=== PATIENT | male | born 1975 | race Two or more races ===

== ENCOUNTER 2021-11-10 09:22 | Emergency (ER) | payer MEDICAID, SELFPAY ==
--- NOTE | ~2021-11-10 | XR_ITS ---
EXAMINATION: XR CHEST CLINICAL INFORMATION: Chest pain COMPARISON: 04/16/2019 TECHNIQUE: Frontal view of the chest was obtained. FINDINGS: The lungs are well expanded. There is blunting at the right costophrenic angle with thickening along the right lower pleural aspect. This suggests a small pleural effusion. Hazy opacity at the right base. No pneumothorax. The cardiomediastinal silhouette is within normal limits. No acute osseous abnormality. XR/XR chest 1V IMPRESSION: Opacity at the right base likely represents a combination of small pleural effusion and atelectasis or pneumonia.
--- NOTE | ~2021-11-10 | XR_ITS ---
EXAMINATION: XR SHOULDER, LEFT CLINICAL INFORMATION: Left shoulder pain COMPARISON: None TECHNIQUE: Three views of the left shoulder. FINDINGS: No fracture or dislocation. The glenohumeral joint is well aligned. The joint space is maintained. The acromioclavicular joint is intact. The visualized lung is clear. The visualized ribs are intact. XR/XR shoulder LT min 2V IMPRESSION: Normal left shoulder.
[2021-11-10 09:30] VITALS: PULSE 102; RESP 22; TEMP 37.3; O2SAT 99; BMI 21.8
[2021-11-10 09:31] VITALS: BP 137/80; PULSE 110; O2SAT 100
--- NOTE | 2021-11-10 11:16 | ECG_ITS ---
Test Reason : WEAKNESS Blood Pressure : / mmHG Vent. Rate : 097 BPM Atrial Rate : 097 BPM P-R Int : 146 ms QRS Dur : 080 ms QT Int : 368 ms P-R-T Axes : 071 058 038 degrees QTc Int : 467 ms Normal sinus rhythm Normal ECG When compared to the previous EKG of No significant changes seen Referred By: Beti Zepeda Electronically Signed By:Pradeep Montaño
--- NOTE | 2021-11-10 13:11 | ED_ITS ---
HPI - Extremity Problem General Chief complaint: Extremity Injury, Upper Stated complaint: L ARM PAIN/BRUISING,NO INJURY PER EMS Time Seen by Provider: 11/10/21 10:53 Source: patient and EMS Mode of arrival: EMS History of Present Illness HPI Narrative: 46-year-old male with a past medical history of substance abuse presenting to the ED complaining of left shoulder pain radiating to left neck, left chest wall and down LUE since yesterday s/p washing windows. Denies direct injury/ trauma or fall. Admits to associated nausea and vomiting. admits to using cocaine yesterday, denies using today, did take his dose of methadone this morning. Denies SOB, abdominal pain, pedal edema, recent travel, weakness MD Complaint: extremity pain Onset (ago): day(s) Pain Consistency: constant Related Data Previous Rx's Medication Instructions Recorded azithromycin 250 mg tablet See Rx Instructions .ROUTE 11/10/21 .COMPLEX #6 tab cefpodoxime 200 mg tablet 200 mg PO BID 7 Days #14 tab 11/10/21 lidocaine 5 % topical patch 1 patch TOPICAL DAILY PRN #30 ea 11/10/21 (Lidoderm) MDD remove after 12 hours naproxen 500 mg tablet 500 mg PO BID PRN 7 Days #14 tab 11/10/21 Allergies Allergy/AdvReac Type Severity Reaction Status Date / Time No Known Allergies Allergy Unverified 03/06/20 17:45 Review of Systems Review of Systems: Constitutional: No Fever, No Chills, No Fatigue, No Malaise ENT/Mouth: No Hearing loss, No Ear Pain, No Nasal Congestion, No sore throat, No Rhinorrhea, No Swallowing Difficulty Eyes: No Eye Pain, No Swelling, No Redness Cardiovascular: + Chest Pain, No SOB, No Dyspnea on Exertion, No Orthopnea, No Edema, No Palpitations Respiratory: No Cough, No Sputum, No Dyspnea Gastrointestinal: + Nausea, + Vomiting, No Diarrhea, No Constipation, No Ab dominal pain Genitourinary: No Dysuria, No Urinary Frequency, No Hematuria, No Urinary Incontinence/retention, No Flank Pain Musculoskeletal: + joint pain, No Myalgias, No Joint Swelling Skin: No Skin Lesions, No rash Neuro: No Weakness, No Numbness, No Paresthesias, No Dizziness, No Headache Yes all other systems are reviewed and are negative [facility], [facility] Past Medical History Attestation statement: The following information was validated with the patient. Social History Social History Advance Directives: No Advance Directives Information Provided: No Physical Exam Vital Signs: Vital Signs: Last Vital Signs Temp 98.4 F 11/10/21 16:32 Pulse 96 11/10/21 16:32 Resp 16 11/10/21 16:32 BP 135/83 11/10/21 16:32 Pulse Ox 98 11/10/21 16:32 BMI result Body Mass Index 21.8 Const: General: cooperative Orientation/consciousness: patient oriented x3 Limitations: no limitations HEENT: Head: Yes normal to inspection and Yes atraumatic Ears: hearing grossly normal bilaterally General nose exam: Normal external nose present Face and sinus: Yes normal facial exam Eyes: General: appearance normal, both eyes and all related structures EOM: EOMs intact bilaterally Neck: Other: no midline cervical spinous tenderness/ step-off or deformity. Left-sided paraspinal and trapezius muscle tenderness to palpation Neck: Yes normal visual inspection and Yes no meningeal signs Resp: Effort & Inspection: normal respiratory effort and no respiratory distress Auscultation: clear to auscultation bilaterally and no wheezes Cardio: Rate: regular rate Heart sounds: S1 normal heart sound present and S2 normal heart sound present Peripheral pulses: radial pulses present GI: Inspection: Yes normal to inspection Palpation (GI): Soft to palpation, nontender, no guarding and not rigid : General: Yes no CVA tenderness Back/Spine/Pelvis: Back: no CVA tenderness Skin: Rashes: no rashes Wounds: no wounds Neuro: General: patient oriented x3, tone normal and no meningeal signs Gait exam (Neuro): Normal gait present Extrem: Other: left shoulder without noted deformity. Diffusely tender to palpation greater over deltoid. No fluctuance/induration/ erythema or ecchymosis. Decreased ROM secondary to pain. Neurovascular intact distally. Sensation intact to light touch. General: Yes normal to inspection Course Course Course Narrative: XR chest 1V IMPRESSION: Opacity at the right base likely represents a combination of small pleural effusion and atelectasis or pneumonia. XR shoulder LT min 2V IMPRESSION: Normal left shoulder. -1311-- Lactic/ blood cultures added as well as IV Ceftriaxone and Azithromycin. still low suspicion for severe sepsis, tachycardia/ tachypnea likely from pacing around room/suspected substance abuse. -1426-- leukocytosis of 13.1 however appears chronic/ improved from priors. H&H at patient's baseline. BUN chronically elevated. Lactic acid negative. Troponin negative - tox screen positive for opiates, fentanyl, cocaine -1542-- on re-evaluation patient is sleeping comfortably in stretcher. results discussed with patient and family at bedside with film inspector including worrisome signs and symptoms and strict return precautions. Plan to DC home MDM - Extremity (Nontraumatic) MDM Narrative Medical decision making narrative: 46-year-old male with a past medical history of substance abuse presenting to the ED complaining of left shoulder pain radiating to left neck, left chest wall and down LUE since yesterday s/p washing windows. On exam tachycardic likely from pacing around room/fever, tachypneic, low-grade temp 99.1 degrees, lungs CTA, physical exam as above. Concern for atypical ACS vs cocaine chest pain vs MSK pain/ strain/muscle spasming vs viral syndrome. Lower concern for fracture. Unlikely PE. concern for substance use plan: EKG, labs, CXR confirmed 19/influenza testing, pain management Medical Records Attestation: I reviewed the patient's medical records. Lab Data Attestation: I reviewed the patient's lab results. Result diagrams: 11/10/21 13:07 11/10/21 13:07 Labs: Lab Results 11/10/21 11/10/21 11/10/21 Range/Units 13:07 13:07 13:08 WBC 13.1 H (4.8-10.8) X10*3/uL RBC 3.83 L (4.60-5.80) X10*6/uL Hgb 10.9 L (14.0-18.0) g/dl Hct 33.8 L (42.0-52.0) % MCV 88.3 (80.0-98.0) fL MCH 28.5 (27.0-33.0) pg MCHC 32.2 (31.0-36.0) g/dl RDW 14.6 (11.0-16.0) % Plt Count 239 (160-400) X10*3/uL MPV 10.0 (9.4-12.4) fL Immature Gran % (Auto) 1.0 H (0.0-0.4) % Neut % (Auto) 81.9 H (45-73) % Lymph % (Auto) 5.8 L (20-40) % Walsh % (Auto) 11.0 (2-11) % Eos % (Auto) 0.0 (0-4) % Baso % (Auto) 0.3 (0-2) % Lymph # (Auto) 0.8 L (1.2-4.9) X10*3/uL Walsh # (Auto) 1.5 H (0.1-1.2) X10*3/uL Eos # (Auto) 0.0 (0.0-0.4) X10*3/uL Baso # (Auto) 0.0 (0.0-0.2) X10*3/uL Abs Immat Gran (auto) 0.13 H (0.00-0.03) X10*3/uL Absolute Neuts (auto) 10.8 H (2.0-8.3) x10*3/uL Absolute Nucleated RBC 0.000 (0.0-0.012) X10*3/uL Nucleated RBC % (auto) 0.0 (0.0-0.2) /100WBC Sodium 135 (135-145) mmol/L Potassium 4.0 (3.3-5.1) mmol/L Chloride 100 (96-108) mmol/L Carbon Dioxide 25 (22-29) mmol/L Anion Gap 14 (12-20) BUN 25 H (9-16) mg/dL Creatinine 1.19 (0.5-1.4) mg/dL Estim Creat Clear Calc 67.8 Estimated GFR > 60 Random Glucose 100 (60-115) mg/dL Lactic Acid (0.5-2.0) mmol/L Calcium 8.7 (8.4-10.2) mg/dL Magnesium 2.3 (1.6-2.6) mg/dL Total Bilirubin 0.3 (0.0-1.0) mg/dL Direct Bilirubin 0.2 (0.0-0.5) mg/dL AST 16 (5-37) U/L ALT 16 (0-40) U/L Alkaline Phosphatase 113 (39-117) U/L Troponin I High Sens < 3.5 (<3.5-35.0) ng/L Total Protein 7.3 (6.5-8.0) g/dL Albumin 3.6 (3.5-5.0) g/dL Urine Color Urine Appearance Urine pH (5.0-8.0) Ur Specific [place] (1.005-1.025) Urine Protein (NEG-TRACE) MG/DL Urine Glucose (UA) (NEG) MG/DL Urine Ketones (NEG) MG/DL Urine Blood (NEG) Urine Nitrite (NEG) Ur Leukocyte Esterase (NEG) Urine RBC (0) /HPF Urine WBC (0-4) /HPF Ur Squamous Epith Cells /LPF Urine Bacteria /LPF WBC Casts /LPF Urine Mucus /LPF Urine Opiates Screen (Not Detect) Urine Fentanyl Screen (Not Detect) Ur Barbiturates Screen (Not Detect) Ur Phencyclidine Scrn (Not Detect) Ur Amphetamines Screen (Not Detect) U Benzodiazepines Scrn (Not Detect) Urine Cocaine Screen (Not Detect) U Marijuana (THC) Screen (Not Detect) COVID-19 (GINNY) (Negative) COVID-19 Clin Com Influenza Type A (ALINE) (Negative) Influenza Type B (ALINE) (Negative) Influenza A & B Note 11/10/21 11/10/21 11/10/21 Range/Units 13:22 14:30 16:27 WBC (4.8-10.8) X10*3/uL RBC (4.60-5.80) X10*6/uL Hgb (14.0-18.0) g/dl Hct (42.0-52.0) % MCV (80.0-98.0) fL MCH (27.0-33.0) pg MCHC (31.0-36.0) g/dl RDW (11.0-16.0) % Plt Count (160-400) X10*3/uL MPV (9.4-12.4) fL Immature Gran % (Auto) (0.0-0.4) % Neut % (Auto) (45-73) % Lymph % (Auto) (20-40) % Walsh % (Auto) (2-11) % Eos % (Auto) (0-4) % Baso % (Auto) (0-2) % Lymph # (Auto) (1.2-4.9) X10*3/uL Walsh # (Auto) (0.1-1.2) X10*3/uL Eos # (Auto) (0.0-0.4) X10*3/uL Baso # (Auto) (0.0-0.2) X10*3/uL Abs Immat Gran (auto) (0.00-0.03) X10*3/uL Absolute Neuts (auto) (2.0-8.3) x10*3/uL Absolute Nucleated RBC (0.0-0.012) X10*3/uL Nucleated RBC % (auto) (0.0-0.2) /100WBC Sodium (135-145) mmol/L Potassium (3.3-5.1) mmol/L Chloride (96-108) mmol/L Carbon Dioxide (22-29) mmol/L Anion Gap (12-20) BUN (9-16) mg/dL Creatinine (0.5-1.4) mg/dL Estim Creat Clear Calc Estimated GFR Random Glucose (60-115) mg/dL Lactic Acid 1.2 (0.5-2.0) mmol/L Calcium (8.4-10.2) mg/dL Magnesium (1.6-2.6) mg/dL Total Bilirubin (0.0-1.0) mg/dL Direct Bilirubin (0.0-0.5) mg/dL AST (5-37) U/L ALT (0-40) U/L Alkaline Phosphatase (39-117) U/L Troponin I High Sens (<3.5-35.0) ng/L Total Protein (6.5-8.0) g/dL Albumin (3.5-5.0) g/dL Urine Color Urine Appearance Urine pH (5.0-8.0) Ur Specific [place] (1.005-1.025) Urine Protein (NEG-TRACE) MG/DL Urine Glucose (UA) (NEG) MG/DL Urine Ketones (NEG) MG/DL Urine Blood (NEG) Urine Nitrite (NEG) Ur Leukocyte Esterase (NEG) Urine RBC (0) /HPF Urine WBC (0-4) /HPF Ur Squamous Epith Cells /LPF Urine Bacteria /LPF WBC Casts /LPF Urine Mucus /LPF Urine Opiates Screen POSITIVE H (Not Detect) Urine Fentanyl Screen POSITIVE H (Not Detect) Ur Barbiturates Screen Not Detected (Not Detect) Ur Phencyclidine Scrn Not Detected (Not Detect) Ur Amphetamines Screen Not Detected (Not Detect) U Benzodiazepines Scrn Not Detected (Not Detect) Urine Cocaine Screen POSITIVE H (Not Detect) U Marijuana (THC) Screen Not Detected (Not Detect) COVID-19 (GINNY) (Negative) COVID-19 Clin Com Influenza Type A (ALINE) Negative (Negative) Influenza Type B (ALINE) Negative (Negative) Influenza A & B Note See Note 11/10/21 11/10/21 Range/Units 16:27 16:33 WBC (4.8-10.8) X10*3/uL RBC (4.60-5.80) X10*6/uL Hgb (14.0-18.0) g/dl Hct (42.0-52.0) % MCV (80.0-98.0) fL MCH (27.0-33.0) pg MCHC (31.0-36.0) g/dl RDW (11.0-16.0) % Plt Count (160-400) X10*3/uL MPV (9.4-12.4) fL Immature Gran % (Auto) (0.0-0.4) % Neut % (Auto) (45-73) % Lymph % (Auto) (20-40) % Walsh % (Auto) (2-11) % Eos % (Auto) (0-4) % Baso % (Auto) (0-2) % Lymph # (Auto) (1.2-4.9) X10*3/uL Walsh # (Auto) (0.1-1.2) X10*3/uL Eos # (Auto) (0.0-0.4) X10*3/uL Baso # (Auto) (0.0-0.2) X10*3/uL Abs Immat Gran (auto) (0.00-0.03) X10*3/uL Absolute Neuts (auto) (2.0-8.3) x10*3/uL Absolute Nucleated RBC (0.0-0.012) X10*3/uL Nucleated RBC % (auto) (0.0-0.2) /100WBC Sodium (135-145) mmol/L Potassium (3.3-5.1) mmol/L Chloride (96-108) mmol/L Carbon Dioxide (22-29) mmol/L Anion Gap (12-20) BUN (9-16) mg/dL Creatinine (0.5-1.4) mg/dL Estim Creat Clear Calc Estimated GFR Random Glucose (60-115) mg/dL Lactic Acid (0.5-2.0) mmol/L Calcium (8.4-10.2) mg/dL Magnesium (1.6-2.6) mg/dL Total Bilirubin (0.0-1.0) mg/dL Direct Bilirubin (0.0-0.5) mg/dL AST (5-37) U/L ALT (0-40) U/L Alkaline Phosphatase (39-117) U/L Troponin I High Sens (<3.5-35.0) ng/L Total Protein (6.5-8.0) g/dL Albumin (3.5-5.0) g/dL Urine Color YELLOW Urine Appearance HAZY Urine pH 6.0 (5.0-8.0) Ur Specific [place] 1.025 (1.005-1.025) Urine Protein 1+ H (NEG-TRACE) MG/DL Urine Glucose (UA) NEG (NEG) MG/DL Urine Ketones 15 (NEG) MG/DL Urine Blood 1+ H (NEG) Urine Nitrite NEG (NEG) Ur Leukocyte Esterase NEG (NEG) Urine RBC 0-2 (0) /HPF Urine WBC 10-14 H (0-4) /HPF Ur Squamous Epith Cells TRACE /LPF Urine Bacteria TRACE /LPF WBC Casts 5-9 /LPF Urine Mucus TRACE /LPF Urine Opiates Screen (Not Detect) Urine Fentanyl Screen (Not Detect) Ur Barbiturates Screen (Not Detect) Ur Phencyclidine Scrn (Not Detect) Ur Amphetamines Screen (Not Detect) U Benzodiazepines Scrn (Not Detect) Urine Cocaine Screen (Not Detect) U Marijuana (THC) Screen (Not Detect) COVID-19 (GINNY) Negative (Negative) COVID-19 Clin Com See Note Influenza Type A (ALINE) (Negative) Influenza Type B (ALINE) (Negative) Influenza A & B Note ECG Data Attestation EKG: I personally reviewed and interpreted this ECG as follows: ECG interpretation date: 11/10/21 Interpretation: EKG normal sinus rhythm at a rate of 97. Pr interval 146. QTC 467. No STEMI Discharge Plan Discharge Clinical Impression: Acute shoulder pain, Pneumonia Patient Disposition: Home, Self-Care Instructions: Shoulder Pain (ED), Pneumonia (ED) Additional Instructions: your blood work was reassuring today in the emergency department. Your chest x -ray shows some fluid in her lung versus pneumonia, you were treated for pneumonia. You need to continue taking prescribed antibiotics, a Zithromax in and cefpodoxime. It is recommended you have a repeat chest x-ray in 7-10 days please follow-up with her doctor. You also need to follow-up with orthopedics for your shoulder pain. Naproxen as an anti-inflammatory/ pain medication, take with food. Lidoderm or numbing patches apply to painful area. If symptoms persist or worsen, pain becomes unbearable, have constant worsening cough/chest pain /shortness of breath or fever please return to the emergency department higginbotham an?lisis de aryan fue tranquilizador hoy en el departamento de emergencias. Higginboth[place] radiograf?a de t?rax muestra algo de l?quido en hig[place] pulm?n versus neumon?a, u sted recibi? tratamiento por neumon?a. Debe continuar tomando los antibi?ticos recetados, Zithromax y cefpodoxima. Se recomienda repetir la radiograf?a de t?rax en 7-10 d?as por favor, seguimiento con higginbotham m?dico. Tambi?n necesita seguimiento con ortopedia para higginbotham dolor de hombro. Naproxeno sophia medicamento antiinflamatorio/analg?sico, t?hadley con alimentos. Lidoderm o parches anest?sicos se aplican en el ?davina dolorida. Si los s?ntomas persisten o empeoran, el dolor se vuelve insoportable, tiene tos/dolor en el pecho/dificultad para respirar o fiebre que empeora constantemente, regrese al departamento de emergencias. Prescriptions: New cefpodoxime 200 mg tablet 200 mg PO BID 7 Days Qty: 14 0RF Rx Instructions: must administer with a meal/food azithromycin 250 mg tablet See Rx Instructions .ROUTE .COMPLEX Qty: 6 0RF Rx Instructions: take 500 mg today (day 1), then 250 mg for 4 days (days 2-5) lidocaine [Lidoderm] 5 % adhesive patch,medicated 1 patch topical DAILY MDD remove after 12 hours PRN (Reason: pain) Qty: 30 0RF Rx Instructions: leave on most painful area for up to 12 hrs naproxen 500 mg tablet 500 mg PO BID PRN (Reason: pain) 7 Days Qty: 14 0RF Referrals: Physician,Michelle J [Primary Care Provider] - Gabi De La Fuente PA-C [Physician Dry Chain Operator] - 1 week Print Language: Qatari
[2021-11-10 13:13] LABS: MANUAL DIFF FLAG NO
[2021-11-10 13:20] LABS: Basophils Percent Auto 0.3 % (0-2); Hematocrit 33.8 % (42.0-52.0); Hemoglobin 10.9 g/dl (14.0-18.0); Imm Gran Abs Auto 0.13 X10*3/uL (0.00-0.03); Lymphocytes Absolute Auto 0.8 X10*3/uL (1.2-4.9); Lymphocytes Percent Auto 5.8 % (20-40); Mean Corpuscular HGB Conc 32.2 g/dl (31.0-36.0); Mean Corpuscular Hemoglobin 28.5 pg (27.0-33.0); Mean Corpuscular Volume 88.3 fL (80.0-98.0); Monocytes Absolute Auto 1.5 X10*3/uL (0.1-1.2); Neutrophils Absolute Auto 10.8 x10*3/uL (2.0-8.3); Neutrophils Percent Auto 81.9 % (45-73); Platelet Count 239 X10*3/uL (160-400); Red Blood Count 3.83 X10*6/uL (4.60-5.80); Red Cell Distribution Width 14.6 % (11.0-16.0); White Blood Count 13.1 X10*3/uL (4.8-10.8)
[2021-11-10 13:34] LABS: Troponin-I High Sensitivity < 3.5 ng/L (<3.5-35.0)
[2021-11-10 13:40] LABS: Alanine Aminotransferase 16 U/L (0-40); Albumin Level 3.6 g/dL (3.5-5.0); Alkaline Phosphatase 113 U/L (39-117); Anion Gap 14 (12-20); Aspartate Amino Transferase 16 U/L (5-37); Bilirubin Direct 0.2 mg/dL (0.0-0.5); Bilirubin Total 0.3 mg/dL (0.0-1.0); Blood Urea Nitrogen 25 mg/dL (9-16); Calcium 8.7 mg/dL (8.4-10.2); Carbon Dioxide 25 mmol/L (22-29); Chloride 100 mmol/L (96-108); Creatinine Clr Calc Pharmacy 67.8; Estimated Glomerular Filt Rate > 60; Glucose Random 100 mg/dL (60-115); Magnesium 2.3 mg/dL (1.6-2.6); Sodium 135 mmol/L (135-145); Total Protein 7.3 g/dL (6.5-8.0)
[2021-11-10 13:42] LABS: Lactic Acid 1.2 mmol/L (0.5-2.0)
[2021-11-10 14:56] LABS: Amphetamine Screen Urine Not Detected (Not Detect); Barbiturates, Urine Not Detected (Not Detect); Benzodiazepines Screen Urine Not Detected (Not Detect); Cannabinoid Screen Urine Not Detected (Not Detect); Cocaine Screen Urine POSITIVE (Not Detect); Fentanyl, urine POSITIVE (Not Detect); Opiate Screen Urine POSITIVE (Not Detect); Phencyclidine Screen Urine Not Detected (Not Detect)
[2021-11-10] MEDS: 0.9 % Sodium Chloride 1,000 ML 999 ML IV ×2 (15:21→16:13)
[2021-11-10] MEDS: cefTRIAXone sodium 1 GM in 0.9 % Sodium Chloride 50 ML IV (15:21)
[2021-11-10] MEDS: Cyclobenzaprine HCl 5 MG TABLET PO (15:24)
[2021-11-10 15:49] VITALS: BP 121/73; PULSE 96; RESP 18; TEMP 37.3; O2SAT 97
[2021-11-10] MEDS: Azithromycin 500 MG in 0.9 % Sodium Chloride 250 ML 125 MG IV (16:22)
[2021-11-10 16:32] VITALS: BP 135/83; PULSE 96; RESP 16; TEMP 36.9; O2SAT 98
[2021-11-10 16:40] LABS: Appearance Urine HAZY; Color Urine YELLOW; Glucose Urine UA NEG (NEG); Leukocyte Esterase Urine NEG (NEG); Nitrite Urine NEG (NEG); Specific Gravity - Urine 1.025 (1.005-1.025); UACC Culture Trigger NO; Urine Blood 1+ (NEG); Urine Ketones 15 MG/DL (NEG); Urine Protein 1+ MG/DL (NEG-TRACE)
[2021-11-10 16:55] LABS: Bacteria Urine TRACE /LPF; Mucus Urine TRACE /LPF; RBC Urine 0-2 /HPF (0); Squamous Epithelial Cell Urine TRACE /LPF; UACC CULT YES
[2021-11-10 17:06] LABS: COVID-19 Test Negative (Negative); IDNOW Serial# 55D5AD1C; Influenza A Negative (Negative); Influenza B2 Negative (Negative)
[2021-11-10] MEDS: Metoclopramide HCl 10 MG/2 ML VIAL IVPUSH (17:11)
== END 2021-11-10 17:46 | disposition home or self-care (01) ==
PROVIDERS: Physician Assistant; Emergency Provider Emergency Medicine
DX: J15.211 Pneumonia due to Methicillin susceptible Staphylococcus aureus (principal); M25.512 Pain in left shoulder; Z79.899 Other long term (current) drug therapy; Z20.822 Contact with and (suspected) exposure to COVID-19
CPT/HCPCS: 36415; 71045; 73030; 80048; 80076; 80307; 81001; 83605; 83735; 84484; 85025; 87040; 87077; 87086; 87147; 87186; 87205; 87502; 87635; 93005; 96365; 96367; 96372; 96375; 99283; 99284; J0456; J0696; J2765

== ENCOUNTER 2021-11-16 17:45 | Inpatient (IN) | payer MEDICAID, SELFPAY ==
--- NOTE | ~2021-11-16 | CT_ITS ---
EXAMINATION: CT CHEST WITHOUT CONTRAST CLINICAL INFORMATION: Chest pain, IV drug abuse, question septic emboli COMPARISON: Chest x-ray 11/10/2021 TECHNIQUE: Multidetector volumetric CT imaging of the chest was done. Axial MIP volume rendering provided. Sagittal and coronal reformatted images were obtained. This CT examination was performed using dose optimization techniques as appropriate, variously including the following: *Automated exposure control *Adjustment of mA and/or kV according to patient size (this includes techniques or standardized protocols for targeted exams where dose is matched to indication/reason for exam; i.e. extremities or head) *Use of iterative reconstruction technique DLP: 205 mGy-cm FINDINGS: LUNGS/PLEURA: There is a nodular focus in the lateral left upper lobe measuring approximately 2.3 cm in diameter with central cavitation and surrounding groundglass opacity. A noncavitating 0.5 cm nodule with surrounding groundglass opacity is present in the left upper lobe laterally on image [id number]/486. A few additional scattered focal groundglass opacities are present in the posterior left upper lobe. There is a mixed density 0.5 cm posterior right upper lobe nodule on image 184/486. Focal nodular opacity is present in the right middle lobe laterally measuring approximately 2.6 cm, with minimal central cavitation. There is volume loss in the right middle lobe with subsegmental atelectasis. There is paraseptal emphysema at the lung apices. There is posterior curvilinear opacity in the basilar right lower lobe with suspected adjacent minimal pleural fluid. Associated pleural thickening is seen extending laterally and anteriorly. There is mild dependent opacity at the left base without significant pleural effusion. MEDIASTINUM: The visualized thyroid gland is unremarkable. There are mildly prominent mediastinal lymph nodes, suboptimally assessed without intravenous contrast. Cardiac size is within normal limits; no pericardial effusion. Coronary artery calcifications are present. AXILLA: No lymphadenopathy. UPPER ABDOMEN: Unremarkable. OSSEOUS STRUCTURES: Mild degenerative endplate changes are present in the spine. CT/CT chest wo con IMPRESSION: 1. Several bilateral nodular foci, largest in the left upper and right middle lobe as described above with central cavitary foci. Appearance is suspicious for septic emboli given the clinical history. Without prior studies for comparison, follow-up CT in 3 months is advised to assess for resolution of these findings and exclude underlying neoplasm. 2. Posterior curvilinear opacity in the basilar right lower lobe, favored to at least partially be due to atelectasis and/or scar. Minimal adjacent pleural fluid is suspected along with pleural thickening. Attention on follow-up is recommended. 3. Mildly prominent mediastinal lymph nodes, which may be reactive. 4. Paraseptal emphysema at the lung apices.
--- NOTE | ~2021-11-16 | XR_ITS ---
EXAMINATION: XR SHOULDER, LEFT CLINICAL INFORMATION: Shoulder pain. COMPARISON: 11/10/2021. TECHNIQUE: Four views of the left shoulder. FINDINGS: The bones and soft tissues are normal. No fracture. Glenohumeral and acromioclavicular alignment is anatomic with normal joint space. No abnormal soft tissue calcifications. XR/XR shoulder LT min 2V IMPRESSION: Normal left shoulder.
[2021-11-16 18:12] VITALS: BP 116/73; PULSE 102; RESP 16; TEMP 36; O2SAT 96; BMI 24.2
[2021-11-16 19:00] VITALS: BP 111/72; PULSE 99; RESP 18; TEMP 36.6; O2SAT 96
--- NOTE | 2021-11-16 19:08 | ECG_ITS ---
Test Reason : SKIN/ABSCESS Blood Pressure : / mmHG Vent. Rate : 078 BPM Atrial Rate : 078 BPM P-R Int : 154 ms QRS Dur : 074 ms QT Int : 404 ms P-R-T Axes : 049 052 035 degrees QTc Int : 460 ms Normal sinus rhythm Normal ECG When compared with ECG of 10-NOV-2021 12:53, No significant change was found Referred By: Dia Lopez Electronically Signed By:ROSA BROOKS MD
--- NOTE | 2021-11-16 19:22 | ED_ITS ---
HPI - Skin/Abscess/Foreign Bdy General Chief complaint: Skin/Abscess/Foreign Body Stated complaint: lump on shoulder Time Seen by Provider: 11/16/21 18:59 History of Present Illness HPI narrative: Patient is a 46-year-old male with a history of recreational drug use. Patient's shoots cocaine and heroin. Was seen in the emergency department 2 days prior for having shoulder pain possible pneumonia. Patient had some small amount of redness over the left shoulder. Had decreased range of motion. Labs were done normal white count cultures were done. Patient was called back to the emergency department today because the blood culture came back positive 2/2 for Gram-positive cocci in clusters. Patient denies any fever chills infected shoulder pain has subsided. Patient range of motion at the shoulder has much improved. He claims is back to normal. Patient denies any coughing congestion upper respiratory symptoms. He claims he is vaccinated for COVID. Patient complaining of a redness over the left shoulder. The same shoulder that he had pain in. He claims compliance with his antibiotics he was given cefpodoxime and also azithromycin for the pneumonia. He was given naproxen for pain Related Data Previous Rx's Medication Instructions Recorded azithromycin 250 mg tablet See Rx Instructions .ROUTE 11/10/21 .COMPLEX #6 tab cefpodoxime 200 mg tablet 200 mg PO BID 7 Days #14 tab 11/10/21 lidocaine 5 % topical patch 1 patch TOPICAL DAILY PRN #30 ea 11/10/21 (Lidoderm) MDD remove after 12 hours naproxen 500 mg tablet 500 mg PO BID PRN 7 Days #14 tab 11/10/21 Allergies Allergy/AdvReac Type Severity Reaction Status Date / Time No Known Allergies Allergy Unverified 03/06/20 17:45 Review of Systems Review of Systems: Positive pain to the left shoulder No fever no chills no coughing or congestion no upper respiratory symptoms No diaphoresis Yes all other systems are reviewed and are negative FOR[facility]LY [facility] Past Medical History Attestation statement: The following information was validated with the patient. Social History Social History Advance Directives: No Advance Directives Information Provided: No Physical Exam Vital Signs: Vital Signs: Last Vital Signs Temp 99.0 F 11/16/21 19:45 Pulse 85 11/16/21 19:45 Resp 16 11/16/21 19:45 BP 100/60 11/16/21 19:45 Pulse Ox 100 11/16/21 19:45 BMI result Body Mass Index 24.2 Appearance: Alert. Oriented X3. No acute distress. Eyes: Pupils equal, round and reactive to light. ENT: Pharynx normal. Neck: Normal inspection. Neck supple. No lymph nodes noted. No crepitus CVS: Normal heart rate and rhythm. Pulses normal. Normal S1 and S2 Respiratory: No respiratory distress. Breath sounds normal. No Wheezing. No rales Abdomen: Soft and nontender. No rigidity. No distention. good BS x4 Skin: Skin warm and dry. Normal skin color. Normal skin turgor. Extremities: No lower extremity edema. Neurovascular intact to all extremities. No Lacerations. Examination of the left shoulder this showed good range of motion. Abduction adduction internal external rotation for intact. Able to touch the opposite shoulder with his hands without any difficulties. Good pulses 2+ at radial sensation over the axillary median radial ulnar nerve intact. There is a distal small area of redness that is approximately 3 cm x 3 cm in size. Ultrasound was done on that lesion. There is no evidence for fluctuance at this time. Neuro: Oriented X 3. No motor deficit. No sensory deficit. Moving all extermities. No slurred speech MDM - Skin/Abscess/Foreign Bdy MDM Narrative Medical decision making narrative: Positive blood cultures x2 sets. History of IV drug use. Started on Ancef after discussion with Infectious Disease. Will admit patient for further workup in house. Currently in stable condition awaiting admissions. Medical Records Attestation: I reviewed the patient's medical records. Lab Data Attestation: I reviewed the patient's lab results. Discharge Plan Discharge Clinical Impression: Cellulitis, Blood bacterial culture positive Patient Disposition: Admitted As Inpatient Prescriptions: No Action cefpodoxime 200 mg tablet 200 mg PO BID 7 Days Qty: 14 0RF Rx Instructions: must administer with a meal/food azithromycin 250 mg tablet See Rx Instructions .ROUTE .COMPLEX Qty: 6 0RF Rx Instructions: take 500 mg today (day 1), then 250 mg for 4 days (days 2-5) lidocaine [Lidoderm] 5 % adhesive patch,medicated 1 patch topical DAILY MDD remove after 12 hours PRN (Reason: pain) Qty: 30 0RF Rx Instructions: leave on most painful area for up to 12 hrs naproxen 500 mg tablet 500 mg PO BID PRN (Reason: pain) 7 Days Qty: 14 0RF
[2021-11-16 19:45] VITALS: BP 100/60; PULSE 85; RESP 16; TEMP 37.2; O2SAT 100
[2021-11-16 20:38] LABS: Hemoglobin 9.2 g/dl (14.0-18.0); Mean Corpuscular HGB Conc 32.9 g/dl (31.0-36.0); Mean Corpuscular Hemoglobin 28.2 pg (27.0-33.0); Mean Corpuscular Volume 85.9 fL (80.0-98.0); Mean Platelet Volume 9.1 fL (9.4-12.4); Platelet Count 465 X10*3/uL (160-400); Red Blood Count 3.26 X10*6/uL (4.60-5.80); Red Cell Distribution Width 15.3 % (11.0-16.0); White Blood Count 17.2 X10*3/uL (4.8-10.8)
[2021-11-16 20:39] LABS: Lactic Acid 0.8 mmol/L (0.5-2.0)
[2021-11-16 20:41] LABS: Anion Gap 16 (12-20); Blood Urea Nitrogen 20 mg/dL (9-16); Calcium 8.6 mg/dL (8.4-10.2); Carbon Dioxide 26 mmol/L (22-29); Chloride 102 mmol/L (96-108); Creatinine Clr Calc Pharmacy 116.4; Estimated Glomerular Filt Rate > 60; Glucose Random 107 mg/dL (60-115); Potassium 4.5 mmol/L (3.3-5.1); Sodium 139 mmol/L (135-145)
--- NOTE | 2021-11-16 20:41 | P.HPHOSP_ITS ---
History of Present Illness Date of Service: 11/16/21 Chief Complaint: bacterimic This is a 46-year-old male who is [place]ian-speaking polysubstance abuser, asthma, depression anxiety, who presents to the hospital after blood cultures from recent admission showed MSSA Patient was seen in the hospital on 11/06 for evaluation of left shoulder pain radiating to the left neck, left chest wall and down left upper extremity. At that time patient was febrile, tachypneic, had low-grade temperature of 99.1 degrees. Workup in the ED which include chest x-ray showed right base pneumonia and small pleural effusion and patient was started on antibiotics azithromycin and cefpodoxime and sent home. Patient was called back by the ED to the hospital as his blood cultures were positive for Gram-positive cocci in clusters with Staph aureus identified. Patient currently is asymptomatic but reports bilateral chest wall pain worse with movement and taking deep breaths. Patient otherwise denies any palpitations, no shortness of breath, no cough, denies any fever but feels chills. No abdominal pain nausea or vomiting, no diarrhea constipation, no urinary symptoms. And no lower extremity edema. On arrival to the ED patient hemodynamically stable with no significant abnormal vitals Labs are significant for WBC count of 17.2, hemoglobin of 9.2, hematocrit of 28 , no other lab abnormality Infectious disease was consulted and recommend admission and starting IV antibiotics patient's history of polysubstance abuse Review of Systems Review of Systems: Yes all other systems are reviewed and are negative [facility] Medical History (Updated 11/17/21 @ 06:21 by Kitty Holloway MD) Anxiety and depression Asthma Polysubstance abuse Family History (Updated 11/17/21 @ 06:16 by Kitty Holloway MD) Mother Coronary artery disease Surgical History (Updated 11/17/21 @ 06:16 by Kitty Holloway MD) No pertinent past surgical history Social History (Updated 11/17/21 @ 06:17 by Kitty Holloway MD) Alcohol intake: current Patient Tobacco Use Status: Current everyday Tobacco user Cigarette Packs Per Day: 0.7 Use of substances other than those prescribed or required for medical reasons: Yes Substance Use Type: Crack/Cocaine and Heroin Advance Directives: No Advance Directives Information Provided: No Meds Allergies Allergy/AdvReac Type Severity Reaction Status Date / Time No Known Allergies Allergy Unverified 03/06/20 17:45 Active Medications: Current Medications Acetaminophen (Acetaminophen 325 Mg Tablet) 650 mg PO Q6H PRN PRN Reason: Pain, Mild (Pain Scale 1-3) Docusate Sodium (Docusate Sodium 100 Mg Capsule) 100 mg PO DAILY PRN PRN Reason: Constipation Enoxaparin Sodium (Enoxaparin Sodium 40 Mg/0.4 Ml Syringe) 40 mg SUBCUT Q24H [facility] Cefazolin Sodium 2 gm/ Sodium (Chloride) 50 mls @ 100 mls/hr IV Q8H [facility] Ondansetron HCl (Ondansetron Hcl 4 Mg/2 Ml Vial) 4 mg IVPUSH Q8H PRN PRN Reason: Nausea and Vomiting Pharmacy Consult (Consult Rx Perform Med Rec) 1 each MISCELLANE ONCE PRN PRN Reason: Consult order Sodium Chloride (0.9 % Sodium Chloride Flush 3 Ml Syringe) 3 ml IVFLUSH QSHIFT [facility] Home Medications Medication Instructions Recorded Confirmed Last Taken Type docusate sodium 100 mg capsule 1 - 2 cap PO BEDTIME PRN 11/16/21 11/16/21 11/15/21 History fluticasone 500 mcg-salmeterol 50 1 puff PO DAILY 11/16/21 11/16/21 Unknown History mcg/dose blistr powdr for inhalation (Advair Diskus) gabapentin 300 mg capsule 1 cap PO TID 11/16/21 11/16/21 11/15/21 History ipratropium 20 mcg-albuterol 100 1 puff INHALATION QID PRN 11/16/21 11/16/21 11/15/21 History mcg/actuation mist for inhalation (Combivent Respimat) loratadine 10 mg tablet 1 tab PO DAILY 11/16/21 11/16/21 11/15/21 History melatonin 5 mg tablet 2 tab PO BEDTIME PRN 11/16/21 11/16/21 11/15/21 History montelukast 10 mg tablet 1 tab PO QPM 11/16/21 11/16/21 11/15/21 History tiotropium bromide 18 mcg capsule 1 cap INHALATION DAILY 11/16/21 11/16/21 Unknown History with inhalation device (Spiriva with HandiHaler) Physical Exam Vital Signs and Narrative: Vital Signs: Last Vital Signs Temp 99.0 F 11/16/21 19:45 Pulse 85 11/16/21 19:45 Resp 16 11/16/21 19:45 BP 100/60 11/16/21 19:45 Pulse Ox 100 11/16/21 19:45 BMI result Body Mass Index 24.2 Const: General: cooperative and no acute distress Orienta tion/consciousness: patient oriented x3 Eyes: General: appearance normal, both eyes and all related structures Resp: Effort & Inspection: normal respiratory effort Auscultation: clear to auscultation bilaterally Cardio: Rate: regular rate Rhythm: regular rhythm GI: Palpation (GI): Soft to palpation Auscultation: normal bowel sounds Skin: General skin exam: no rashes or lesions noted Neuro: General: patient oriented x3 Cognition (Neuro): normal cognition Extrem: General: Yes normal to inspection and Yes no pedal edema Results Labs CBC and Chem 7: 11/17/21 04:54 11/17/21 04:54 Labs: Laboratory Results - last 24 hr 11/16/21 11/16/21 20:19 20:20 MCV 85.9 MCH 28.2 MCHC 32.9 RDW 15.3 Plt Count 465 H D MPV 9.1 L Immature Gran % (Auto) Cancelled Neut % (Auto) Cancelled Lymph % (Auto) Cancelled [place] % (Auto) Cancelled Eos % (Auto) Cancelled Baso % (Auto) Cancelled Lymph # (Auto) Cancelled [place] # (Auto) Cancelled Eos # (Auto) Cancelled Baso # (Auto) Cancelled Abs Immat Gran (auto) Cancelled Absolute Neuts (auto) Cancelled Absolute Nucleated RBC 0.000 Nucleated RBC % (auto) 0.0 Lactic Acid 0.8 Imaging Radiologist's Impressions: Impressions Shoulder X-Ray 11/16/21 19:39 IMPRESSION: Normal left shoulder. Assessment and Plan (1) Blood bacterial culture positive: Status: Acute (2) Polysubstance abuse: Status: Acute (3) MSSA bacteremia: Status: Acute (4) Pneumonia: Status: Acute (5) Atypical chest pain: Status: Acute Plan 46-year-old male with past medical history of polysubstance abuse including IV drug use presents to the hospital after positive blood cultures. # MSSA bacteremia - possibly secondary to IV drug use versus contaminant less likely - blood cultures positive 2/2 - will treat with Ancef per ID recommendation - repeat blood cultures - will order CT angiogram given recent x-ray - follow cultures # pneumonia? - patient denies any cough, no shortness of breath - chest x-ray done on 524 showed pleural effusion and atelectasis versus infection - at this time given his history of MSSA bacteremia, will obtain CT angiogram to rule out septic emboli as well as PE as patient is having atypical chest pain - follow CT result - antibiotics as above # atypical chest pain - possibly secondary to pneumonia versus septic emboli versus PE - will obtain CT angiogram - monitor respiratory status - at this time patient not hypoxic # phos substance use - on methadone - consult care team - resume methadone DVT prophylaxis: Lovenox Given patient's bacteremia and history of IV drug use, he requires a minimum 2 night hospital stay for IV antibiotics until further cultures Quality Stroke Does the patient have a stroke diagnosis?: No VTE Prior VTE?: No VTE Risk Level:: Medical - moderate - high VTE Device Contraindication: Treatment Not Indicated VTE Drug Contraindication: N/A - Med Ordered
[2021-11-16 20:44] LABS: COVID-19 Test Negative (Negative)
[2021-11-16 21:02] LABS: Band Neutrophils Percent 1 % (3-5); Eosinophils Absolute Manual 0.3 X10*3/uL (0.0-0.4); Eosinophils Percent Manual 2 % (0-4); Lymphocytes Absolute Manual 3.6 X10*3/uL (1.2-4.9); Lymphocytes Percent Manual 21 % (20-40); Metamyelocytes Absolute 0.2 X10*3/uL; Metamyelocytes Percent 1 %; Monocytes Absolute Manual 0.7 X10*3/uL (0.1-1.2); Monocytes Percent Manual 4 % (2-11); Myelocytes Absolute 0.3 X10*/uL; Myelocytes Percent 2 %; Neutrophils Percent Manual 69 % (45-73)
[2021-11-16 21:03] LABS: Microcytosis 1+ (5-14) /OIF; Platelet Estimate INCREASED (NORMAL); RBC Morphology NOTED
[2021-11-16 21:04] LABS: Large Platelet PRESENT; Platelet Morphology Comment NOTED
[2021-11-16 21:05] LABS: Hypochromasia 3+ (>30) /OIF
--- NOTE | 2021-11-16 21:05 | PHA.MEDREC ---
Pharmacy Consult ? Medication Reconciliation Pharmacy has completed the medication reconciliation.
[2021-11-16 21:06] LABS: Polychromasia 1+ (0-2) /OIF; Toxic Granulation PRESENT
[2021-11-16 21:07] LABS: Toxic Vacuolation PRESENT
[2021-11-16 21:18] VITALS: BP 115/71; PULSE 78; RESP 16; TEMP 36.6; O2SAT 897
[2021-11-16] MEDS: Enoxaparin Sodium 40 MG/0.4 ML SYRINGE SUBCUT (21:41)
[2021-11-16] MEDS: ceFAZolin Sodium/Dextrose,Iso 2 GM/50 ML PIGGYBACK IV (21:41)
[2021-11-16 23:58] VITALS: BP 106/73; PULSE 82; RESP 16; TEMP 36.5; O2SAT 97
[2021-11-17 04:59] LABS: Hemoglobin 9.4 g/dl (14.0-18.0); Mean Corpuscular HGB Conc 32.4 g/dl (31.0-36.0); Mean Corpuscular Hemoglobin 28.6 pg (27.0-33.0); Mean Corpuscular Volume 88.1 fL (80.0-98.0); Platelet Count 410 X10*3/uL (160-400); Red Blood Count 3.29 X10*6/uL (4.60-5.80); Red Cell Distribution Width 15.5 % (11.0-16.0); White Blood Count 14.1 X10*3/uL (4.8-10.8)
[2021-11-17 05:17] LABS: Band Neutrophils Percent 1 % (3-5); Lymphocytes Absolute Manual 3.5 X10*3/uL (1.2-4.9); Lymphocytes Percent Manual 25 % (20-40); Metamyelocytes Absolute 0.4 X10*3/uL; Metamyelocytes Percent 3 %; Monocytes Absolute Manual 1.3 X10*3/uL (0.1-1.2); Monocytes Percent Manual 9 % (2-11); Myelocytes Absolute 0.1 X10*/uL; Myelocytes Percent 1 %; Neutrophils Absolute Manual 8.7 X10*3/uL (2.0-8.3); Neutrophils Percent Manual 61 % (45-73); Platelet Estimate NORMAL (NORMAL); Platelet Morphology Comment NORMAL; RBC Morphology NORMAL
[2021-11-17 05:22] VITALS: BP 111/73; PULSE 74; RESP 16; TEMP 36.6; O2SAT 97
[2021-11-17 05:25] LABS: Anion Gap 13 (12-20); Blood Urea Nitrogen 19 mg/dL (9-16); Calcium 8.8 mg/dL (8.4-10.2); Carbon Dioxide 28 mmol/L (22-29); Chloride 101 mmol/L (96-108); Creatinine Clr Calc Pharmacy 125.4; Estimated Glomerular Filt Rate > 60; Glucose Random 90 mg/dL (60-115); Potassium 4.7 mmol/L (3.3-5.1); Sodium 137 mmol/L (135-145)
[2021-11-17] MEDS: ceFAZolin Sodium/Dextrose,Iso 2 GM/50 ML PIGGYBACK IV (06:04)
[2021-11-17 07:09] LABS: D Dimer High Sensitivity 1115 NG/ML
[2021-11-17] MEDS: 0.9 % Sodium Chloride Flush 3 ML SYRINGE IVFLUSH (07:09)
[2021-11-17 07:40] VITALS: BP 117/67; PULSE 74; RESP 17; TEMP 36.5; O2SAT 96
--- NOTE | 2021-11-17 08:39 | HO.PM.IMPN ---
Subjective Subjective Date of Service: 11/17/21 Interval History: Pneumonia, possible septic emboli Physical Exam Vital Signs: Vital Signs: Last Vital Signs Temp 97.7 F 11/17/21 07:40 Pulse 74 11/17/21 07:40 Resp 17 11/17/21 07:40 BP 117/67 11/17/21 07:40 Pulse Ox 96 11/17/21 07:40 BMI result Body Mass Index 24.2 Objective Data Active Medications Acetaminophen (Acetaminophen 325 Mg Tablet) 650 mg PO Q6H PRN PRN Reason: Pain, Mild (Pain Scale 1-3) Albuterol/Ipratropium (Albuterol/Iprat 2.5/0.5mg 3 Ml Ampul.Neb) 3 ml INHALE QID PRN PRN Reason: Wheezing Docusate Sodium (Docusate Sodium 100 Mg Capsule) 100 mg PO DAILY PRN PRN Reason: Constipation Enoxaparin Sodium (Enoxaparin Sodium 40 Mg/0.4 Ml Syringe) 40 mg SUBCUT Q24H [facility] Last Admin: 11/16/21 21:41 Dose: 40 mg Documented by: FARZAD Fluticasone/Vilanterol (Fluticasone/Vilanterol 200/25 Blst.W.Dev) 1 puff INHALE RDAILY [facility] Last Admin: 11/17/21 07:38 Dose: Not Given Documented by: ZOHREH Non-Admin Reason: Med Not Available Gabapentin (Gabapentin 300 Mg Capsule) 300 mg PO TID [facility] Cefazolin Sodium/Dextrose (Ancef) 2 gm in 50 mls @ 100 mls/hr IV Q8H [facility] Last Infusion: 11/17/21 07:08 Dose: 0 mls/hr Documented by: COOPELiyah Loratadine (Loratadine 10 Mg Tablet) 10 mg PO DAILY [facility] Melatonin (Melatonin 3 Mg Tablet) 6 mg PO BEDTIME PRN PRN Reason: Insomnia Montelukast Sodium (Montelukast Sodium 10 Mg Tablet) 10 mg PO BEDTIME [facility] Ondansetron HCl (Ondansetron Hcl 4 Mg/2 Ml Vial) 4 mg IVPUSH Q8H PRN PRN Reason: Nausea and Vomiting Pharmacy Consult (Consult Rx Perform Med Rec) 1 each MISCELLANE ONCE PRN PRN Reason: Consult order Sodium Chloride (0.9 % Sodium Chloride Flush 3 Ml Syringe) 3 ml IVFLUSH QSHIFT [facility] Last Admin: 11/17/21 07:09 Dose: 3 ml Documented by: HELLEN Tiotropium [place] (Tiotropium [place] 18 Mcg Cap.W.Dev) 1 puff INHALE RDAILY [facility] Last Admin: 11/17/21 07:38 Dose: Not Given Documented by: ZOHREH Non-Admin Reason: Med Not Available Zolpidem Tartrate (Zolpidem Tartrate 5 Mg Tablet) 5 mg PO BEDTIME PRN PRN Reason: Insomnia Labs CBC & Chem 7: 11/17/21 04:54 11/17/21 04:54 Labs: Laboratory Results - last 24 hr 11/16/21 11/16/21 11/16/21 20:19 20:20 20:20 MCV 85.9 MCH 28.2 MCHC 32.9 RDW 15.3 Plt Count 465 H D MPV 9.1 L Immature Gran % (Auto) Cancelled Neut % (Auto) Cancelled Lymph % (Auto) Cancelled [place] % (Auto) Cancelled Eos % (Auto) Cancelled Baso % (Auto) Cancelled Lymph # (Auto) Cancelled [place] # (Auto) Cancelled Eos # (Auto) Cancelled Baso # (Auto) Cancelled Abs Immat Gran (auto) Cancelled Absolute Neuts (auto) Cancelled Absolute Nucleated RBC 0.000 Nucleated RBC % (auto) 0.0 Neutrophils % (Manual) 69 Band Neutrophils % 1 L Lymphocytes % (Manual) 21 Monocytes % (Manual) 4 Eosinophils % (Manual) 2 Metamyelocytes % 1 Myelocytes % 2 Abs Neuts (Manual) 12.0 H Lymphocytes # (Manual) 3.6 Monocytes # (Manual) 0.7 Eosinophils # (Manual) 0.3 Metamyelocytes # 0.2 Myelocytes # 0.3 Toxic Granulation PRESENT Toxic Vacuolation PRESENT Platelet Estimate INCREASED Large Platelets PRESENT Plt Morphology Comment NOTED RBC Morphology NOTED Polychromasia 1+ (0-2) Hypochromasia 3+ (>30) Microcytosis 1+ (5-14) D-Dimer High Sensitivty Anion Gap 16 Estim Creat Clear Calc 116.4 Estimated GFR > 60 Random Glucose 107 Lactic Acid 0.8 Calcium 8.6 COVID-19 ([facility]NY) COVID-19 Clin Com 11/16/21 11/17/21 11/17/21 20:20 04:54 04:54 MCV 88.1 MCH 28.6 MCHC 32.4 RDW 15.5 Plt Count 410 H MPV 9.0 L Immature Gran % (Auto) Cancelled Neut % (Auto) Cancelled Lymph % (Auto) Cancelled [place] % (Auto) Cancelled Eos % (Auto) Cancelled Baso % (Auto) Cancelled Lymph # (Auto) Cancelled [place] # (Auto) Cancelled Eos # (Auto) Cancelled Baso # (Auto) Cancelled Abs Immat Gran (auto) Cancelled Absolute Neuts (auto) Cancelled Absolute Nucleated RBC 0.000 Nucleated RBC % (auto) 0.0 Neutrophils % (Manual) 61 Band Neutrophils % 1 L Lymphocytes % (Manual) 25 Monocytes % (Manual) 9 Eosinophils % (Manual) Metamyelocytes % 3 Myelocytes % 1 Abs Neuts (Manual) 8.7 H Lymphocytes # (Manual) 3.5 Monocytes # (Manual) 1.3 H Eosinophils # (Manual) Metamyelocytes # 0.4 Myelocytes # 0.1 Toxic Granulation Toxic Vacuolation Platelet Estimate NORMAL Large Platelets Plt Morphology Comment NORMAL RBC Morphology NORMAL Polychromasia Hypochromasia Microcytosis D-Dimer High Sensitivty Anion Gap 13 Estim Creat Clear Calc 125.4 Estimated GFR > 60 Random Glucose 90 Lactic Acid Calcium 8.8 COVID-19 ([facility]NY) Negative COVID-19 Clin Com See Note 11/17/21 06:47 MCV MCH MCHC RDW Plt Count MPV Immature Gran % (Auto) Neut % (Auto) Lymph % (Auto) [place] % (Auto) Eos % (Auto) Baso % (Auto) Lymph # (Auto) [place] # (Auto) Eos # (Auto) Baso # (Auto) Abs Immat Gran (auto) Absolute Neuts (auto) Absolute Nucleated RBC Nucleated RBC % (auto) Neutrophils % (Manual) Band Neutrophils % Lymphocytes % (Manual) Monocytes % (Manual) Eosinophils % (Manual) Metamyelocytes % Myelocytes % Abs Neuts (Manual) Lymphocytes # (Manual) Monocytes # (Manual) Eosinophils # (Manual) Metamyelocytes # Myelocytes # Toxic Granulation Toxic Vacuolation Platelet Estimate Large Platelets Plt Morphology Comment RBC Morphology Polychromasia Hypochromasia Microcytosis D-Dimer High Sensitivty 1115 Anion Gap Estim Creat Clear Calc Estimated GFR Random Glucose Lactic Acid Calcium COVID-19 ([facility]NY) COVID-19 Clin Com Assessment and Plan Plan 46-year-old male with past medical history of polysubstance abuse including IV drug use presents to the hospital after positive blood cultures. # MSSA bacteremia - possibly secondary to IV drug use versus contaminant less likely - blood cultures positive 2/2 - will treat with Ancef per ID recommendation - repeat blood cultures - will order CT angiogram given recent x-ray - follow cultures # pneumonia? - patient denies any cough, no shortness of breath - chest x-ray done on 524 showed pleural effusion and atelectasis versus infection - at this time given his history of MSSA bacteremia, will obtain CT angiogram to rule out septic emboli as well as PE as patient is having atypical chest pain - follow CT result - antibiotics as above # atypical chest pain - possibly secondary to pneumonia versus septic emboli versus PE - will obtain CT angiogram - monitor respiratory status - at this time patient not hypoxic # phos substance use - on methadone - consult care team - resume methadone DVT prophylaxis:? Lovenox Given patient's bacteremia and history of IV drug use, he requires a minimum 2 night hospital stay for IV antibiotics until further cultures Quality Stroke Does the patient have a stroke diagnosis?: No VTE Prior VTE?: No VTE Risk Level:: Medical - moderate - high VTE Device Contraindication: Treatment Not Indicated VTE Drug Contraindication: N/A - Med Ordered
[2021-11-17] MEDS: Loratadine 10 MG TABLET PO (09:05)
[2021-11-17] MEDS: Gabapentin 300 MG CAPSULE PO (09:05)
--- NOTE | 2021-11-17 10:03 | MHC.RECOVRN ---
Spoke with Katie at [facility] in [place]. Pt last received 125 mg methadone at [facility] on 11/15 and was provided with a take home bottle for the holiday on 11/16. RADHA Bates.
--- NOTE | 2021-11-17 10:48 | P.DS_ITS ---
DS: Providers Provider Date of Service: 11/17/21 Date of admission: 11/16/21 20:24 Primary care physician: [facility] Consults: 11/16/21 20:24 Consult to Infectious Diseases Routine Consulting Provider: Yvonne Donovan Reason for consultation: Bacteremic, IVDU 11/17/21 06:25 Consult to Care Team Routine Comment: Reason for consultation: Polysubstance abuse, methadone 11/17/21 08:38 Consult to Pulmonology Routine Consulting Provider: Livia Leal Reason for consultation: pneumonia /?possible septic emboli Has provider been notified: No DS: Diagnosis Discharge Diagnosis (1) Blood bacterial culture positive: Status: Acute (2) Polysubstance abuse: Status: Acute (3) MSSA bacteremia: Status: Acute (4) Pneumonia: Status: Acute (5) Atypical chest pain: Status: Acute DS: Summary Hospital Course Hospital Course: 46-year-old male who is Ukrainian-speaking polysubstance abuser, asthma, depression anxiety, who presents to the hospital after blood cultures from recent admission showed MSSA Patient was seen in the hospital on 11/06 for evaluation of left shoulder pain radiating to the left neck, left chest wall and down left upper extremity.? At that time patient was febrile, tachypneic, had low-grade temperature of 99.1 degrees.? Workup in the ED which include chest x-ray showed right base pneumonia and small pleural effusion and patient was started on antibiotics azithromycin and cefpodoxime and sent home.? Patient was called back by the ED to the hospital as his blood cultures were positive for Gram-positive cocci in clusters with Staph aureus identified. Patient currently is asymptomatic but reports bilateral chest wall pain worse with movement and taking deep breaths.? Patient otherwise denies any palpitations, no shortness of breath, no cough, denies any fever but feels chills.? No abdominal pain nausea or vomiting, no diarrhea constipation, no urinary symptoms.? And no lower extremity edema. On arrival to the ED patient hemodynamically stable with no significant abnormal vitals Labs are significant for WBC count of 17.2, hemoglobin of 9.2, hematocrit of 28 , no other lab abnormality Infectious disease was consulted and recommend admission and starting IV antibiotics patient's history of polysubstance abuse. Hospital course: patient left against medical advise patient was initially admitted for pneumonia, bacteremia, also found to have back cavitary lesions- risk of leaving against medical advice including worsening sepsis, worsening short of breath including discussed with him in detail he understand and still wants to leave. Added p.o. cephalexin upon discharge. Patient was also told to go to nearest emergency room further treatment as soon as possible. above management witness with the clerical order filler. assessment and plan coordination time spent 40 minutes. Time Spent with Patient Time attestation: Total time spent providing and/or coordinating discharge services: Discharge coordination time: Greater than 30 minutes Quality: Safe Use of Opioids Does Pt have an Active Cancer Diagnosis on the Problem List?: No Quality: Stroke Does the patient have a stroke diagnosis?: No Physical Exam Vital Signs: Vital Signs: Last Vital Signs Temp 97.7 F 11/17/21 07:40 Pulse 74 11/17/21 07:40 Resp 17 11/17/21 07:40 BP 117/67 11/17/21 07:40 Pulse Ox 96 11/17/21 07:40 BMI result Body Mass Index 24.2 Declined physical exam DS: Data Data Completed and Pending Labs on day of discharge: Laboratory Results - last 24 hr 11/16/21 11/16/21 11/16/21 20:19 20:20 20:20 WBC 17.2 H RBC 3.26 L Hgb 9.2 L Hct 28.0 L MCV 85.9 MCH 28.2 MCHC 32.9 RDW 15.3 Plt Count 465 H D MPV 9.1 L Immature Gran % (Auto) Cancelled Neut % (Auto) Cancelled Lymph % (Auto) Cancelled [place] % (Auto) Cancelled Eos % (Auto) Cancelled Baso % (Auto) Cancelled Lymph # (Auto) Cancelled [place] # (Auto) Cancelled Eos # (Auto) Cancelled Baso # (Auto) Cancelled Abs Immat Gran (auto) Cancelled Absolute Neuts (auto) Cancelled Absolute Nucleated RBC 0.000 Nucleated RBC % (auto) 0.0 Neutrophils % (Manual) 69 Band Neutrophils % 1 L Lymphocytes % (Manual) 21 Monocytes % (Manual) 4 Eosinophils % (Manual) 2 Metamyelocytes % 1 Myelocytes % 2 Abs Neuts (Manual) 12.0 H Lymphocytes # (Manual) 3.6 Monocytes # (Manual) 0.7 Eosinophils # (Manual) 0.3 Metamyelocytes # 0.2 Myelocytes # 0.3 Toxic Granulation PRESENT Toxic Vacuolation PRESENT Platelet Estimate INCREASED Large Platelets PRESENT Plt Morphology Comment NOTED RBC Morphology NOTED Polychromasia 1+ (0-2) Hypochromasia 3+ (>30) Microcytosis 1+ (5-14) D-Dimer High Sensitivty Sodium 139 Potassium 4.5 Chloride 102 Carbon Dioxide 26 Anion Gap 16 BUN 20 H Creatinine 0.70 Estim Creat Clear Calc 116.4 Estimated GFR > 60 Random Glucose 107 Lactic Acid 0.8 Calcium 8.6 COVID-19 (GINNY) COVID-19 [employer] 11/16/21 11/17/21 11/17/21 20:20 04:54 04:54 WBC 14.1 H RBC 3.29 L Hgb 9.4 L Hct 29.0 L MCV 88.1 MCH 28.6 MCHC 32.4 RDW 15.5 Plt Count 410 H MPV 9.0 L Immature Gran % (Auto) Cancelled Neut % (Auto) Cancelled Lymph % (Auto) Cancelled [place] % (Auto) Cancelled Eos % (Auto) Cancelled Baso % (Auto) Cancelled Lymph # (Auto) Cancelled [place] # (Auto) Cancelled Eos # (Auto) Cancelled Baso # (Auto) Cancelled Abs Immat Gran (auto) Cancelled Absolute Neuts (auto) Cancelled Absolute Nucleated RBC 0.000 Nucleated RBC % (auto) 0.0 Neutrophils % (Manual) 61 Band Neutrophils % 1 L Lymphocytes % (Manual) 25 Monocytes % (Manual) 9 Eosinophils % (Manual) Metamyelocytes % 3 Myelocytes % 1 Abs Neuts (Manual) 8.7 H Lymphocytes # (Manual) 3.5 Monocytes # (Manual) 1.3 H Eosinophils # (Manual) Metamyelocytes # 0.4 Myelocytes # 0.1 Toxic Granulation Toxic Vacuolation Platelet Estimate NORMAL Large Platelets Plt Morphology Comment NORMAL RBC Morphology NORMAL Polychromasia Hypochromasia Microcytosis D-Dimer High Sensitivty Sodium 137 Potassium 4.7 Chloride 101 Carbon Dioxide 28 Anion Gap 13 BUN 19 H Creatinine 0.65 Estim Creat Clear Calc 125.4 Estimated GFR > 60 Random Glucose 90 Lactic Acid Calcium 8.8 COVID-19 (GINNY) Negative COVID-19 [facility] Com See Note 11/17/21 06:47 WBC RBC Hgb Hct MCV MCH MCHC RDW Plt Count MPV Immature Gran % (Auto) Neut % (Auto) Lymph % (Auto) [place] % (Auto) Eos % (Auto) Baso % (Auto) Lymph # (Auto) [place] # (Auto) Eos # (Auto) Baso # (Auto) Abs Immat Gran (auto) Absolute Neuts (auto) Absolute Nucleated RBC Nucleated RBC % (auto) Neutrophils % (Manual) Band Neutrophils % Lymphocytes % (Manual) Monocytes % (Manual) Eosinophils % (Manual) Metamyelocytes % Myelocytes % Abs Neuts (Manual) Lymphocytes # (Manual) Monocytes # (Manual) Eosinophils # (Manual) Metamyelocytes # Myelocytes # Toxic Granulation Toxic Vacuolation Platelet Estimate Large Platelets Plt Morphology Comment RBC Morphology Polychromasia Hypochromasia Microcytosis D-Dimer High Sensitivty 1115 Sodium Potassium Chloride Carbon Dioxide Anion Gap BUN Creatinine Estim Creat Clear Calc Estimated GFR Random Glucose Lactic Acid Calcium COVID-19 (GINNY) COVID-19 Clin Com Additional Comments Additional comments: Organism 1 Staphylococcus aureus Results of Blood Culture gram stain called to and read back by [email or web address] at 1145 on 11/17/21 by NABOR. S aureus M.I.C. RX --------- --- Clindamycin <=0.25 S Erythromycin >=8 R Levofloxacin 0.25 S Oxacillin <=0.25 S Penicillin-G >=0.5 R Tetracycline <=1 S Trimethoprim/Sulfamethoxazole <=[address]/CT chest wo con IMPRESSION: 1.? Several bilateral nodular foci, largest in the left upper and right middle lobe as described above with central cavitary foci. Appearance is suspicious for septic emboli given the clinical history. Without prior studies for comparison, follow-up CT in 3 months is advised to assess for resolution of these findings and exclude underlying neoplasm. 2.? Posterior curvilinear opacity in the basilar right lower lobe, favored to at least partially be due to atelectasis and/or scar. Minimal adjacent pleural fluid is suspected along with pleural thickening. Attention on follow-up is recommended. 3.? Mildly prominent mediastinal lymph nodes, which may be reactive. 4.? Paraseptal emphysema at the lung apices. Discharge Plan Discharge Patient Disposition: Left Against Medical Advice Discharge Diagnosis: cavitiory pneumonia , bacteremia Referrals: [facility] [Primary Care Provider] - 1 Week Discharge Medications: New cephalexin 500 mg capsule 500 mg PO QID Qty: 28 0RF Continued azithromycin 250 mg tablet See Rx Instructions .ROUTE .COMPLEX Qty: 6 0RF Rx Instructions: take 500 mg today (day 1), then 250 mg for 4 days (days 2-5) naproxen 500 mg tablet 500 mg PO BID PRN (Reason: pain) 7 Days Qty: 14 0RF docusate sodium 100 mg capsule 1 - 2 cap PO BEDTIME PRN (Reason: constipation) 0RF gabapentin 300 mg capsule 1 cap PO TID 0RF montelukast 10 mg tablet 1 tab PO QPM 0RF loratadine 10 mg tablet 1 tab PO DAILY 0RF melatonin 5 mg tablet 2 tab PO BEDTIME PRN (Reason: Insomnia) 0RF Combivent Respimat 20-100 mcg/actuation mist 1 puff INHALATION QID PRN (Reason: Wheezing) 0RF fluticasone propion-salmeterol [Advair Diskus] 500-50 mcg/dose blister with device 1 puff PO DAILY 0RF Spiriva with HandiHaler 18 mcg capsule, w/inhalation device 1 cap inhalation DAILY 0RF Discontinued cefpodoxime 200 mg tablet 200 mg PO BID 7 Days Qty: 14 0RF Rx Instructions: must administer with a meal/food Discharge Orders: Discharge Order (Routine); Ordered 11/17/21 Ordered By: Liseth Elena Diet: advance to usual diet Activity on Discharge: As tolerated Care Plan Goals: patient left against medical advise patient was initially admitted for pneumonia, bacteremia, also found to have back cavitary lesions- risk of leaving against medical advice including worsening sepsis, worsening short of breath including discussed with him in detail he understand and still wants to leave. Added p.o. cephalexin upon discharge. Patient was also told to go to nearest emergency room further treatment as soon as possible. above management witness with the clerical order filler. Health Concerns: As above. Plan of Treatment: As above. Assessment: As above. Fussy Discharge Date/Time: 11/17/21 10:51
--- NOTE | 2021-11-17 11:07 | MHC.CM.PN ---
Patient left AMA before being seen by case management.
== END 2021-11-17 10:51 | disposition left against medical advice (07) | DRG 139 ==
LOC: HO.ED 20:08 → HO.EDOVER 20:41
PROVIDERS: Admitting Provider Internal Medicine; Emergency Provider Emergency Medicine Emergency Medical Services; Visit Provider Internal Medicine
DX: J18.9 Pneumonia, unspecified organism (principal); J91.8 Pleural effusion in other conditions classified elsewhere; R78.81 Bacteremia; B95.8 Unspecified staphylococcus as the cause of diseases classified elsewhere; F17.210 Nicotine dependence, cigarettes, uncomplicated; F32.A Depression, unspecified; J45.909 Unspecified asthma, uncomplicated; J98.4 Other disorders of lung; J98.11 Atelectasis; F41.9 Anxiety disorder, unspecified; F11.20 Opioid dependence, uncomplicated; Z20.822 Contact with and (suspected) exposure to COVID-19; Z71.6 Tobacco abuse counseling; Z79.51 Long term (current) use of inhaled steroids; Z79.899 Other long term (current) drug therapy
CPT/HCPCS: 36415; 71250; 73030; 80048; 83605; 85007; 85027; 85379; 87040; 87077; 87186; 87205; 87635; 93005; 99284; 99285; J0690; J1650

== ENCOUNTER → 2022-04-27 09:01 | Outpatient (REF) | payer MEDICAID, SELFPAY ==
--- NOTE | 2022-04-27 09:07 | ECG_ITS ---
Test Reason : opioid dependence Blood Pressure : / mmHG Vent. Rate : 087 BPM Atrial Rate : 087 BPM P-R Int : 160 ms QRS Dur : 086 ms QT Int : 380 ms P-R-T Axes : 065 057 033 degrees QTc Int : 457 ms Normal sinus rhythm Normal ECG When compared with ECG of 16-NOV-2021 21:05, No significant change was found Referred By: Tadeo Tee Electronically Signed By:ALIYAH MONDRAGON MD
== END ==
LOC: HO.CARD 09:01
PROVIDERS: Absent Provider Registered Nurse; PCP Registered Nurse; Visit Provider Nurse Practitioner Family
DX: F11.20 Opioid dependence, uncomplicated (principal)
CPT/HCPCS: 93005

== ENCOUNTER → 2022-08-27 14:25 | Outpatient (REF) | payer MEDICAID, SELFPAY ==
--- NOTE | 2022-08-27 14:32 | ECG_ITS ---
Test Reason : f33.3, f11.20 Blood Pressure : / mmHG Vent. Rate : 095 BPM Atrial Rate : 095 BPM P-R Int : 166 ms QRS Dur : 074 ms QT Int : 364 ms P-R-T Axes : 066 062 044 degrees QTc Int : 457 ms Normal sinus rhythm Normal ECG When compared with ECG of 27-APR-2022 09:15, No significant change was found Referred By: Tadeo Tee Electronically Signed By:KAYLA DOWLING
== END ==
LOC: HO.CARD 14:25
PROVIDERS: Absent Provider Registered Nurse; PCP Registered Nurse; Visit Provider Nurse Practitioner Family
DX: F33.3 Major depressive disorder, recurrent, severe with psychotic symptoms (principal); F11.20 Opioid dependence, uncomplicated
CPT/HCPCS: 93005

== ENCOUNTER 2022-12-30 12:07 | Outpatient (REF) | payer MEDICAID, SELFPAY ==
[2022-12-30 13:21] LABS: MANUAL DIFF FLAG NO
[2022-12-30 13:36] LABS: Basophils Absolute Auto 0.1 X10*3/uL (0.0-0.2); Basophils Percent Auto 0.7 % (0-2); Eosinophils Absolute Auto 0.1 X10*3/uL (0.0-0.4); Eosinophils Percent Auto 1.2 % (0-4); Hematocrit 38.6 % (42.0-52.0); Hemoglobin 12.8 g/dl (14.0-18.0); Imm Gran Abs Auto 0.05 X10*3/uL (0.00-0.03); Imm Gran Pct Auto 0.5 % (0.0-0.4); Lymphocytes Absolute Auto 2.8 X10*3/uL (1.2-4.9); Lymphocytes Percent Auto 25.7 % (20-40); Mean Corpuscular HGB Conc 33.2 g/dl (31.0-36.0); Mean Corpuscular Hemoglobin 28.7 pg (27.0-33.0); Mean Corpuscular Volume 86.5 fL (80.0-98.0); Mean Platelet Volume 10.5 fL (9.4-12.4); Monocytes Absolute Auto 0.6 X10*3/uL (0.1-1.2); Monocytes Percent Auto 5.4 % (2-11); Neutrophils Absolute Auto 7.4 x10*3/uL (2.0-8.3); Neutrophils Percent Auto 66.5 % (45-73); Platelet Count 378 X10*3/uL (160-400); Red Blood Count 4.46 X10*6/uL (4.60-5.80); Red Cell Distribution Width 14.2 % (11.0-16.0); White Blood Count 11.1 X10*3/uL (4.8-10.8)
[2022-12-30 14:30] LABS: Alanine Aminotransferase 11 U/L (0-40); Alkaline Phosphatase 117 U/L (39-117); Anion Gap 16 (12-20); Aspartate Amino Transferase 16 U/L (5-37); Bilirubin Total 0.2 mg/dL (0.0-1.0); Blood Urea Nitrogen 15 mg/dL (9-16); Calcium 9.7 mg/dL (8.4-10.2); Carbon Dioxide 25 mmol/L (22-29); Chloride 106 mmol/L (96-108); Estimated Glomerular Filt Rate > 60; Glucose Random 114 mg/dL (60-115); Potassium 3.6 mmol/L (3.3-5.1); Sodium 143 mmol/L (135-145); Total Protein 8.1 g/dL (6.5-8.0)
[2022-12-30 14:37] LABS: Free T4 (Free Thyroxine) 0.86 ng/dL (0.71-1.85); Thyroid Stimulating Hormone 1.82 uIU/mL (0.32-4.0)
== END 2022-12-30 12:08 | disposition home or self-care (01) ==
LOC: HO.HHCL 12:07
PROVIDERS: Visit Provider Specialist
DX: F32.9 Major depressive disorder, single episode, unspecified (principal)
CPT/HCPCS: 36415; 80053; 84439; 84443; 85025

== ENCOUNTER 2025-01-24 23:23 | Emergency (ER) | payer MEDICAID, SELFPAY ==
[2025-01-24 23:30] VITALS: BP 126/82; PULSE 64; O2SAT 96
[2025-01-24 23:33] VITALS: BP 98/62; PULSE 62; RESP 18; TEMP 36.8; O2SAT 96; BMI 24.1
--- NOTE | 2025-01-24 23:48 | PC.NURSE ---
BIB EMS, found outside of a liquor store, admits to PD crack/heroin/alcohol use. No narcan given by EMS. Per EMS, pt ambulatory on scene and was arousable for them throughout transport. Upon arrival to ED, patient is awake, answers questions appropriately. Patient reports he is active with outpatient methadone program. Patient would like to sobber up at ED and to be d/garcía in am for outpatient Methadone Clinic services.
--- NOTE | 2025-01-25 01:07 | PC.NURSE ---
BP's soft 90-98/48-52, P57-61. DR. Robles notified, 22 G IV line placed to R hand, bolus of 1 L NS hung and infusing w/o issues
[2025-01-25 01:17] LABS: MANUAL DIFF FLAG NO
[2025-01-25 01:18] LABS: Hematocrit 32.1 % (42.0-52.0); Hemoglobin 11.2 g/dl (14.0-18.0); Imm Gran Abs Auto 0.03 X10*3/uL (0.00-0.03); Imm Gran Pct Auto 0.4 % (0.0-0.4); Lymphocytes Absolute Auto 2.4 X10*3/uL (1.2-4.9); Mean Corpuscular HGB Conc 34.9 g/dl (31.0-36.0); Mean Corpuscular Hemoglobin 30.1 pg (27.0-33.0); Mean Corpuscular Volume 86.3 fL (80.0-98.0); NRBC Abs Auto 0.000 X10*3/uL (0.0-0.012); NRBC Pct Auto 0.0 /100WBC (0.0-0.2); Platelet Count 288 X10*3/uL (160-400); Red Blood Count 3.72 X10*6/uL (4.60-5.80); White Blood Count 7.6 X10*3/uL (4.8-10.8)
--- NOTE | 2025-01-25 01:25 | ED.ALCOHOL ---
HPI - Alcohol General Chief Complaint: ETOH/Substance Use Stated Complaint: Found by [employer] sidewalk ? OD - disoriented Time Seen by Provider: 01/25/25 01:01 Source: patient and EMS Mode of arrival: EMS Limitations: no limitations History of Present Illness ED Provider: Dr. Ameena Robles HPI narrative: Patient comes to the emergency room via EMS. Patient was found inside of liquor store. Patient awake, admits that he was using crack cocaine and alcohol. Patient denies SI or HI. Patient states that this was an accident, denies self-harm. Patient states that in the morning he needs to be discharged by 6 because he wants to go to his methadone clinic. Patient denies any injuries. Related Data Home Medications ?Medication ?Instructions ?Recorded ?Confirmed docusate sodium 100 mg capsule 1 - 2 cap PO BEDTIME PRN 11/16/21 11/16/21 constipation fluticasone 500 mcg-salmeterol 50 1 puff PO DAILY 11/16/21 11/16/21 mcg/dose blistr powdr for inhalation (Advair Diskus) gabapentin 300 mg capsule 1 cap PO TID 11/16/21 11/16/21 ipratropium 20 mcg-albuterol 100 1 puff inhalation QID PRN Wheezing 11/16/21 11/16/21 mcg/actuation mist for inhalation (Combivent Respimat) loratadine 10 mg tablet 1 tab PO DAILY 11/16/21 11/16/21 melatonin 5 mg tablet 2 tab PO BEDTIME PRN Insomnia 11/16/21 11/16/21 montelukast 10 mg tablet 1 tab PO QPM 11/16/21 11/16/21 tiotropium bromide 18 mcg capsule 1 cap inhalation DAILY 11/16/21 11/16/21 with inhalation device (Spiriva with HandiHaler) Previous Rx's ?Medication ?Instructions ?Recorded azithromycin 250 mg tablet See Rx Instructions PO .COMPLEX #6 11/10/21 tabs cefpodoxime 200 mg tablet 200 mg PO BID 7 days #14 tabs 11/10/21 naproxen 500 mg tablet 500 mg PO BID PRN pain 7 days #14 11/10/21 tabs Allergies Allergy/AdvReac Type Severity Reaction Status Date / Time No Known Allergies Allergy Verified 01/24/25 23:34 Review of Systems Review of Systems: Constitutional : No Weight loss, No Fever, No Chills, No Night Sweats, No Fatigue, No Malaise ENT/Mouth : No Hearing loss, No Ear Pain, No Nasal Congestion, No Sinus Pain, No Hoarseness, No sore throat, No Rhinorrhea, No Swallowing Difficulty Eyes: No Eye Pain, No Swelling, No Redness, No Foreign Body, No Discharge, No Vision Changes Cardiovascular : No Chest Pain, No SOB, No Dyspnea on Exertion, No Orthopnea, No Edema, No Palpitations Respiratory : No Cough, No Sputum, No Wheezing, No Smoke Exposure, No Dyspnea Gastrointestinal : No Nausea, No Vomiting, No Diarrhea, No Constipation, No abdominal Pain, No Hematochezia, No Melena Genitourinary : no irregular bleeding, No Dysuria, No Urinary Frequency, No Hematuria, No Urinary Incontinence, No Urgency, No Flank Pain, No Urinary Flow Changes, No Hesitancy Musculoskeletal : No joint pain, No Myalgias, No Joint Swelling Skin : No Skin Lesions, No rash Neuro : No Weakness, No Numbness, No Paresthesias, No Loss of Consciousness, No Dizziness, No Headache Psych : No Anxiety/Panic, No Depression, No SI/HI/AH/VH, admits to polysubstance abuse and alcohol abuse Heme/Lymph: No Bruising, No Bleeding,No Lymphadenopathy Endocrine : No Polyuria, No Polydipsia, No Temperature Intolerance [facility] Past Medical History Medical History (Updated 01/25/25 @ 01:35 by Ameena Robles MD) Nicotine dependence, cigarettes, uncomplicated Asthma Anxiety and depression Polysubstance abuse Cellulitis Surgical History (System 01/08/22 @ 13:46 by Zee Schaefer) No pertinent past surgical history Family History Family History (System 01/08/22 @ 13:46 by Zee Schaefer) Mother Coronary artery disease Social History Social History (System 01/08/22 @ 13:46 by Zee Schaefer) Alcohol intake: current Patient Tobacco Use Status: Current everyday Tobacco user Cigarette Packs Per Day: 0.7 Substance Use Type: Crack/Cocaine and Heroin Advance Directives: No Physical Exam ED Exam Exam: Appearance: Somnolent but easily arousable, seems intoxicated Eyes: Pupils equal, round and reactive to light. ENT: Pharynx normal. Neck: Normal inspection. Neck supple. No lymph nodes noted. No crepitus CVS: Normal heart rate and rhythm. Pulses normal. Normal S1 and S2 Respiratory: No respiratory distress. Breath sounds normal. No Wheezing. No rales Abdomen: Soft and nontender. No rigidity. No distention. Skin: Skin warm and dry. Normal skin color. Normal skin turgor. Extremities: No lower extremity edema. No Lacerations. No Rash Neuro: CN 2 through 12 grossly intact Psych: calm, cooperative, normal affect Vital Signs: Vital Signs - 24 hr 01/24/25 23:33 01/25/25 02:39 01/25/25 05:21 Temperature 98.2 F Pulse Rate 62 55 58 Respiratory Rate 18 16 16 Blood Pressure 98/62 106/67 121/81 Pulse Oximetry 96 97 99 Oxygen Delivery Method Room Air Room Air Room Air BMI result Body Mass Index 24.1 Course Course Course Narrative: On arrival, patient denies SI or HI, patient requesting to be discharged in the morning to go to his methadone clinic. Detox was offered, SUDE eval was offered, Patient declined both Patient will be provided with home Narcan prior to discharge. Physician observation started at 01:00 Medical Decision Making Medical Decision Making [facility] Narrative: I was informed by the patient's nurse that the patient's blood pressure is in the low 90s, patient will be given a L of normal saline. Hypotension likely secondary to the narcotics At this time, we do not have a U tox but patient has had previous urine toxicology is testing positive for narcotics At this time, 05:45, patient is awake, alert and oriented. Patient has no complaints, patient declined sude/detox Patient ready for discharge. Differential Diagnosis Differential Diagnoses: The differential diagnosis associated with the presentation includes (Polysubstance abuse, alcohol abuse, anxiety, depression) Admission/Observation Consideration of admission/observation: Escalation of care including admission/observation considered (Patient is under physician observation, asking to be discharged in the morning once he becomes sober) Lab Data [facility] Lab Attestation statement: I reviewed the patient's lab results. 01/25/25 01:13 01/25/25 01:13 Labs: Lab Results 01/25/25 Range/Units 01:13 WBC 7.6 (4.8-10.8) X10*3/uL RBC 3.72 L (4.60-5.80) X10*6/uL Hgb 11.2 L (14.0-18.0) g/dl Hct 32.1 L (42.0-52.0) % MCV 86.3 (80.0-98.0) fL MCH 30.1 (27.0-33.0) pg MCHC 34.9 (31.0-36.0) g/dl RDW 13.1 (11.0-16.0) % Plt Count 288 (160-400) X10*3/uL MPV 9.2 L (9.4-12.4) fL Immature Gran % (Auto) 0.4 (0.0-0.4) % Neut % (Auto) 55.5 (45-73) % Lymph % (Auto) 31.7 (20-40) % Scott % (Auto) 8.7 (2-11) % Eos % (Auto) 2.8 (0-4) % Baso % (Auto) 0.9 (0-2) % Lymph # (Auto) 2.4 (1.2-4.9) X10*3/uL Scott # (Auto) 0.7 (0.1-1.2) X10*3/uL Eos # (Auto) 0.2 (0.0-0.4) X10*3/uL Baso # (Auto) 0.1 (0.0-0.2) X10*3/uL Abs Immat Gran (auto) 0.03 (0.00-0.03) X10*3/uL Absolute Neuts (auto) 4.2 (2.0-8.3) x10*3/uL Absolute Nucleated RBC 0.000 (0.0-0.012) X10*3/uL Nucleated RBC % (auto) 0.0 (0.0-0.2) /100WBC Sodium 139 (135-145) mmol/L Potassium 3.7 (3.3-5.1) mmol/L Chloride 105 (96-108) mmol/L Carbon Dioxide 25 (22-29) mmol/L Anion Gap 13 (12-20) BUN 22 H (9-16) mg/dL Creatinine 0.64 (0.5-1.4) mg/dL Estim Creat Clear Calc 118.7 Estimated GFR > 60 Random Glucose 112 (60-115) mg/dL Calcium 8.2 L D (8.4-10.2) mg/dL Total Bilirubin 0.2 (0.0-1.0) mg/dL AST 43 H (5-37) U/L ALT 40 (0-40) U/L Alkaline Phosphatase 102 (39-117) U/L Total Protein 7.2 (6.5-8.0) g/dL Albumin 3.5 (3.5-5.0) g/dL Ethyl Alcohol < 10 mg/dL Medications Administered Discontinued Medications Generic Name Dose Route Start Last Admin Trade Name Tabatha PRN Reason Stop Dose Admin Sodium Chloride 1,000 mls @ 999 mls/hr 01/25/25 01:15 01/25/25 02:15 Ns IV 01/25/25 02:15 Infused .Q1H1M MILKA Infusion Critical Care Time Critical Care Time Critical Care Time: Yes Total Critical Care Time: 35 Attestation: I have personally provided critical care time. Time includes review of lab data, radiology results, discussion with consultants, and monitoring for potential decompensation. Intervention performed as documented. Discharge Plan Discharge Clinical Impression: Polysubstance abuse Patient Disposition: Home, Self-Care Instructions: Polysubstance Use Disorder (ED) Additional Instructions: Overdose You were seen in our Emergency Department for an overdose today. You received narcan in order to reverse the effects of overdose. Narcan only lasts about 45 min to 1 hour in the system. You may have been given narcan to take home with you today, please keep it near you if you are going to use again, so others can use it if needed.? The number one risk for fatal overdose is using alone? [employer] is a 10/01 hotline where you can be on the phone with someone while you use, and they can call for help if they suspect an overdose: [phone] Things to look out for when you leave include severe vomiting or diarrhea, headaches, muscle cramps, fever, coughing, chest pain, or if you feel so short of breath you cannot walk to the bathroom. Please seek care and return any time for worsening symptoms.? You may have been provided with safer injection?items, please take time to take care of YOU and your health. Use new supplies whenever possible to lessen the chances of infections and other illnesses.? If you need more supplies, please go [facility],? [address] [place], [place] you can call or text to coordinate delivery of safer supplies. If you decide you want to stop or cut down on how much you?re using, please call the numbers on the list provided to you or you can come to our outpatient Addiction Treatment office [facility] (F 9am-5p) [address], [address] [place], [place]. [phone] Alcohol use disorder You were seen in the Emergency Department today for treatment of alcohol use disorder.? You may have been given medications to help with your withdrawal symptoms.? Please do not drink alcohol with them. This is very dangerous and can cause respiratory depression or other adverse reactions depending on the medication. If you would like to cut down or stop your alcohol use please consider calling our outpatient Addiction Treatment office:? [facility] ([facility] ) [address] You have also been given a list of treatment providers in the area that can assist as well.? If you experience seizures, vomiting blood, black stools, falls, severe headache, chest pain, fevers, trouble breathing, hallucinations or any other concerns you need to call 911 or seek immediate care. Please stay hydrated. Prescriptions: No Action cefpodoxime 200 mg tablet 200 mg PO BID 7 Days Qty: 14 0RF Rx Instructions: must administer with a meal/food azithromycin 250 mg tablet See Rx Instructions .ROUTE .COMPLEX Qty: 6 0RF Rx Instructions: take 500 mg today (day 1), then 250 mg for 4 days (days 2-5) naproxen 500 mg tablet 500 mg PO BID PRN (Reason: pain) 7 Days Qty: 14 0RF docusate sodium 100 mg capsule 1 - 2 cap PO BEDTIME PRN (Reason: constipation) gabapentin 300 mg capsule 1 cap PO TID montelukast 10 mg tablet 1 tab PO QPM loratadine 10 mg tablet 1 tab PO DAILY melatonin 5 mg tablet 2 tab PO BEDTIME PRN (Reason: Insomnia) Combivent Respimat 20-100 mcg/actuation mist 1 puff INHALATION QID PRN (Reason: Wheezing) fluticasone propion-salmeterol [Advair Diskus] 500-50 mcg/dose blister with device 1 puff PO DAILY Spiriva with HandiHaler 18 mcg capsule, w/inhalation device 1 cap inhalation DAILY Print Language: Yakut
[2025-01-25 01:40] LABS: Alanine Aminotransferase 40 U/L (0-40); Albumin Level 3.5 g/dL (3.5-5.0); Alkaline Phosphatase 102 U/L (39-117); Anion Gap 13 (12-20); Aspartate Amino Transferase 43 U/L (5-37); Blood Urea Nitrogen 22 mg/dL (9-16); Calcium 8.2 mg/dL (8.4-10.2); Carbon Dioxide 25 mmol/L (22-29); Chloride 105 mmol/L (96-108); Creatinine Clr Calc Pharmacy 118.7; Estimated Glomerular Filt Rate > 60; Potassium 3.7 mmol/L (3.3-5.1); Sodium 139 mmol/L (135-145); Total Protein 7.2 g/dL (6.5-8.0)
[2025-01-25 02:39] VITALS: BP 106/67; PULSE 55; RESP 16; O2SAT 97
[2025-01-25 05:21] VITALS: BP 121/81; PULSE 58; RESP 16; O2SAT 99
[2025-01-25 06:23] VITALS: BP 121/81; PULSE 58; RESP 16; TEMP 37.1; O2SAT 99
== END 2025-01-25 06:38 | disposition home or self-care (01) ==
PROVIDERS: Emergency Provider Emergency Medicine
DX: F19.10 Other psychoactive substance abuse, uncomplicated (principal)
CPT/HCPCS: 36415; 80053; 80307; 85025; 96360; 99284; 99285